=== PATIENT | female | born 1935 | race Caucasian/White ===

== ENCOUNTER 2019-01-04 09:01 | Inpatient (IN) ==
--- NOTE | 2019-01-04 10:32 | Diag Imaging Result Doc PS360 ---
EXAM: ANKLE COMPLETE LEFT HISTORY: ankle injury TECHNIQUE: Left ankle three views COMPARISON: None. FINDINGS: There is a fracture to the distal fibula with multiple small fragments. The proximal and distal shafts are approximately centimeter. There is also a transverse fracture through the medial malleolus. The tibia is dislocated medially in related to the talus as well as anteriorly. An additional fracture line extends to the posterior tibia. The lateral malleolus is not dislocated from the ankle. IMPRESSION: Fractures to the distal tibia and fibula. Electronically signed by Zaid George 01/04/2019 10:30 AM
--- NOTE | 2019-01-04 10:33 | Diag Imaging Result Doc PS360 ---
CHEST-PORTABLE - 01/04/2019 INDICATION: pre op COMPARISON: 05/19/2018 FINDINGS: There is cardiomegaly and pulmonary vascular congestion. There is a trace left pleural effusion. There are hazy interstitial markings bilaterally suggesting mild pulmonary edema. These are mainly in the lung bases. IMPRESSION: Cardiomegaly. Pulmonary edema. Trace left pleural effusion. Electronically signed by Timothy Dey 01/04/2019 10:31 AM
[2019-01-04 10:51] LABS: BASO# 0.03 X1000 (0.0-0.2); BASO% 0.3 % (0.0-0.8); EOS# 0.07 X1000 (0.0-0.7); EOS% 0.6 % (0.0-10.0); HEMATOCRIT 44.8 % (37.0-47.0); HEMOGLOBIN 14.8 g/dL (12.0-16.0); IMM GRAN# 0.04 X1000 (0.0-0.04); IMM GRAN% 0.3 % (0.0-0.5); LYMPH# 1.04 X1000 (1.2-3.4); LYMPH% 8.8 % (20.5-51.1); MCH 30.1 PG (27-31); MCV 91.1 FL (81-99); MONO# 0.62 X1000 (0.11-0.59); MONO% 5.3 % (1.7-9.3); MPV 10.3 FL (7.4-10.4); NEUT% 84.7 % (42.2-75.2); PLT 182 X1000 (130-400); RBC 4.92 XMIL (4.2-5.4); RDW 14.5 % (11.5-14.5)
[2019-01-04 11:01] LABS: INR 1.15; PROTIME 14.8 Seconds (11.0-16.0)
[2019-01-04 11:02] LABS: PTT 32.6 Seconds (22.3-41.8)
[2019-01-04 11:04] LABS: AGAP 13; ALB/GLOB RATIO 1.2; ALBUMIN 3.8 g/dL (3.5-5.0); ALKALINE PHOSPHATASE 69 U/L (32-104); BUN 20 mg/dL (8-22); CALCIUM 8.9 mg/dL (8.8-10.2); CHLORIDE 100 mmol/L (98-107); COSMO 282; CREATININE 0.8 mg/dL (0.5-0.9); ESTIMATED GFR > 60; GLUCOSE 158 mg/dL (70-104); GOT 20 U/L (10-30); GPT 20 U/L (10-36); POTASSIUM 3.6 mmol/L (3.5-5.1); SODIUM 138 mmol/L (136-145); TCO2 25 mmol/L (25-35); TOTAL BILIRUBIN 1.42 mg/dL (0.20-1.00)
--- NOTE | 2019-01-04 11:32 | PROVIDER DOCUMENTATION ---
This chart was entered by Dru Figueroa Scribe, acting as scribe for Syed Hernandez MD. HPI-Musculoskeletal Pain/Inj - GENERAL Chief Complaint: Fall Stated Complaint: fall Time Seen by Provider: 01/04/19 09:52 Source: patient, EMS - HX OF PRESENT ILLNESS-MUSKULOSKELTAL Nature of Presenting Problem: Pt is a 83 yof who presents to the ED via EMS with a CC of fall injury. Pt states she tripped and fell this morning prior to arrival to the ED. Pt states she injured her left ankle during the fall. Pt denies any head injury or LOC. Upon examination the pt had tenderness, swelling, and ecchymosis to the medial malleolus. EMS reports giving the pt 50 fentanyl in route to the ED. Quality of Pain: reports: aching Severity in ED: mild Onset/Duration: just prior to arrival Timing: still present Any recent injury?: Yes Locality of Occurance: Home Similar Symptoms Previously?: No Recently seen or treated by another doctor?: No - FALL INJURY Location of Pain/Injury: reports: lower extremity (Left ankle) Pain Radiation: reports: no radiation Reason for Fall: reports: tripped Symptoms prior to fall:: reports: none Loss of Consciousness: no loss of consciousness Injury Associated Symptoms: reports: joint pain, trouble walking - LOWER EXTREMITY PAIN/INJURY Lower Extremities Pain: ankle: left Context / Method of Injury: reports: fell Review of Systems - Adult - REVIEW OF SYSTEMS - ADULT Constitutional: reports: see HPI Eyes: reports: no symptoms reported Ears, Nose, Mouth & Throat: reports: no symptoms reported Cardiovascular: reports: no symptoms reported Respiratory: reports: no symptoms reported Gastrointestinal: reports: no symptoms reported Genitourinary: reports: no symptoms reported Musculoskeletal: reports: see HPI, joint pain, joint swelling Integumentary: reports: no symptoms reported Neurological: reports: no symptoms reported Psychiatric: reports: no symptoms reported Endocrine: reports: no symptoms reported Hematologic/Lymphatic: reports: no symptoms reported Allergic/Immunologic: reports: no symptoms reported All Other Systems: Reviewed and Negative Past History - Adult - PAST MEDICAL HISTORY-ADULT Review of Records: reports: Old Records Reviewed, Nursing Assessment Review, Medications Reviewed, Social history reviewed & non-contributory. Major Childhood Illnesses: reports: denies history Cardiovascular: reports: CHF, HTN, UT, other (RBB) Respiratory: reports: denies history Gastrointestinal: reports: diverticulosis Obstetrical/Gynecological: reports: denies history Genitourinary: reports: denies history Musculoskeletal: reports: denies history Neurological: reports: denies history Endocrine/Immune: reports: thyroid disorder Other Conditions: reports: denies history - PRIOR SURGERIES/PROCEDURES Surgical/Procedure History: reports: BTL, tonsillectomy, bowel surgery (resection) - IMMUNIZATION STATUS Childhood Immunizations: See Nurse Assessment Flu Vaccine: See Nurse Assessment - FAMILY HISTORY Family History: reviewed, not pertinent - SOCIAL HISTORY Smoking: denies, non-smoker Substance Use: none/never, denies Alcohol Use Frequency: never Physical Exam-Injury Related - Physical Exam-Injury Related Initial Vital Signs Reviewed: Yes General Appearance: alert, mild distress Eyes: PERRL/EOMI, pink conjunctivae Neck: non-tender, full range of motion Respiratory: chest non-tender, lungs clear, normal breath sounds, no pleuratic chest pain, no respiratory distress, no accessory muscle use Cardiovascular: normal peripheral pulses, regular rate, rhythm, no edema, no gallop, no JVD Abdominal Exam: non tender, soft Extremity: swelling, tenderness Integumentary: ecchymosis, swelling, tenderness Neurologic: grossly normal, no motor/sensory deficits Psych/Mental Status: normal mood/affect, normal thought content, normal thought process, oriented x 3 Progress - PLAN OF CARE/RESULTS Progress/Plan/Lab Results: Vital Signs - 8 hr 01/04/19 09:55 Temperature 97.5 F L Pulse Rate 61 Respiratory Rate 16 Blood Pressure 165/75 O2 Sat by Pulse Oximetry 95 Laboratory Results - last 24 hr 01/04/19 01/04/19 01/04/19 10:37 10:37 10:37 WBC 11.80 H RBC 4.92 Hgb 14.8 Hct 44.8 MCV 91.1 MCH 30.1 MCHC 33.0 RDW Std Deviation 14.5 Plt Count 182 MPV 10.3 Immature Gran % (Auto) 0.3 Neut % (Auto) 84.7 H Lymph % (Auto) 8.8 L Island % (Auto) 5.3 Eos % (Auto) 0.6 Baso % (Auto) 0.3 Immature Gran # (Auto) 0.04 Neut # (Auto) 10.00 H Lymph # (Auto) 1.04 L Island # (Auto) 0.62 H Eos # (Auto) 0.07 Baso # (Auto) 0.03 PT 14.8 INR 1.15 PTT (Actin FS) 32.6 Sodium 138 Potassium 3.6 Chloride 100 Carbon Dioxide 25 Anion Gap 13 BUN 20 Creatinine 0.8 Estimated GFR/1.73 m2 > 60 BUN/Creatinine Ratio 25 Glucose 158 H Calculated Osmolality 282 Calcium 8.9 Total Bilirubin 1.42 H AST 20 ALT 20 Alkaline Phosphatase 69 Total Protein 7.0 Albumin 3.8 Globulin 3.2 Albumin/Globulin Ratio 1.2 Orders Category Date Time Status ANKLE COMPLETE LEFT [RAD] Stat Exams 01/04/19 10:09 Completed CHEST-PORTABLE [RAD] Stat Exams 01/04/19 10:09 Completed CBC WITH DIFF [HEME] Stat Lab 01/04/19 10:37 Completed COMPREHENSIVE METABOLIC PANEL [CHEM] Stat Lab 01/04/19 10:37 Completed PROTIME WITH INR [COAG] Stat Lab 01/04/19 10:37 Completed PTT [COAG] Stat Lab 01/04/19 10:37 Completed URINALYSIS W/POSS RFLX CULT [URINALYSIS] Stat Lab 01/04/19 10:09 Uncollected EKG [EKG] Stat Ther 01/04/19 10:09 Ordered Result Diagrams: 01/04/19 10:37 01/04/19 10:37 - EKG 1 Time of EKG reading by physician:: 10:38 EKG Read and Signed by:: Syed Hernandez EKG Interpretation (*Must complete 3 of following elements*): Abnormal (Sinus bradycardia; Left axis deviation; Right bundle branch block; Left ventricular hypertrophy with repolarization abnormality) Rate: 59 Rhythm: Sinus bradycardia Aspers: left QRS: normal KS Interval: normal ST Wave: normal - XRAY 1 XRAY: Left XRAY Study: Ankle Impression: See EMR Report ( EXAM: ANKLE COMPLETE LEFT HISTORY: ankle injury TECHNIQUE: Left ankle three views COMPARISON: None. FINDINGS: There is a fracture to the distal fibula with multiple small fragments. The proximal and distal shafts are approximately centimeter. There is also a transverse fracture through the medial malleolus. The tibia is dislocated medially in related to the talus as well as anteriorly. An additional fracture line extends to the posterior tibia. The lateral malleolus is not dislocated from the ankle. IMPRESSION: Fractures to the distal tibia and fibula. Electronically signed by Zaid George 01/04/2019 10:30 AM 01/04/19 1030 Interpreting Physician: Zaid George MD Dictated Date/Time: 01/04/19 1029 cc: Syed Hernandez MD; Dennis Donaldson MD) 2 XRAY: Bilateral XRAY Study: Chest Impression: See EMR Report ( CHEST-PORTABLE - 01/04/2019 INDICATION: pre op COMPARISON: 05/19/2018 FINDINGS: There is cardiomegaly and pulmonary vascular congestion. There is a trace left pleural effusion. There are hazy interstitial markings bilaterally suggesting mild pulmonary edema. These are mainly in the lung bases. IMPRESSION: Cardiomegaly. Pulmonary edema. Trace left pleural effusion. Electronically signed by Timothy Dey 01/04/2019 10:31 AM 01/04/19 1031 Interpreting Physician: Timothy Dey MD Dictated Date/Time: 01/04/19 1030 cc: Syed Hernandez MD; Dennis Donaldson MD) - CONSULTS/PCP/HOSPITALIST Notification #1 *Consult/PCP/Hospitalist*: Dr. Pathak Time Discussed: 11:08 Reason/Comments: Made aware of pt and states he will see pt in hospital Consult Disposition: other #2 Consult: Dr. Hartley Time Discussed: 11:24 Reason/Comments: Made aware of pt and accepts admission Consult Disposition: Admit Departure - Departure Date of Disposition Decision: 01/04/19 Time of Disposition Decision: 11:31 DIAGNOSIS: Closed bimalleolar fracture of left ankle Qualifiers: Encounter type: initial encounter Qualified Code(s): S82.842A - Displaced bimalleolar fracture of left lower leg, initial encounter for closed fracture Disposition: ADMITTED INPATIENT 09 Certified Medical Emergency: Emergent Condition: Serious Additional Freetext Instructions: ED Follow Up Instructions: You have been treated by a care provider in the Emergency Department. These instructions are being provided to you so you can have an understanding of how to care for yourself upon discharge. Upon discharge from the Emergency Department, you are responsible for making arrangements for follow-up care by a physician of your choice. Take all prescribed medications as directed. Return to the Emergency Department immediately for any new or worsening symptoms. You may call the Physician Referral phone number at [phone] to obtain a list of Physicians who are taking new patients. Referrals and Follow-Ups: Dennis Donaldson MD [Primary Care Provider] - - Critical Care Note This patient required my direct & personal management of CC.: No Attestation - Physician/ PIERRE Attestation Patient care was provided by Advanced Practice Provider:: No The physician spent face to face time with patient:: Yes Advanced Practice Provider documentation review:: Supervising physician onsite and consulted in the evaluation and care of this patient. The physician did have a face to face encounter with the patient. This chart was documented by the indicated scribe, (Dru Figueroa, Jessieibaquiles) and accurately reflects the services I performed and decisions made by me, Syed Hernandez MD, as attested by the provider's signature.
[2019-01-04] MEDS ORDERED: MORPHINE IV PRN (11:34)
[2019-01-04] MEDS ORDERED: NS 1,000 ML IV ONE (11:34)
[2019-01-04] MEDS ORDERED: ZOFRAN IV PRN ×2 (11:34→16:26)
[2019-01-04] MEDS ORDERED: DILAUDID IV ONE (11:43)
--- NOTE | 2019-01-04 11:49 | EKG Report ---
Test Performed on : 01/04/2019 10:29:11 AM Test Reason : CP Blood Pressure : / mmHG Vent. Rate : 059 BPM Atrial Rate : 059 BPM P-R Int : 144 ms QRS Dur : 136 ms QT Int : 484 ms P-R-T Axes : 000 -30 135 degrees QTc Int : 479 ms Sinus bradycardia. Left axis deviation Right bundle branch block Left ventricular hypertrophy with repolarization abnormality Abnormal ECG When compared with ECG of 19-MAY-2018 08:58, No significant change was found Unconfirmed Result
--- NOTE | 2019-01-04 12:34 | ORTHOPAEDICS CONSULTATION ---
DATE: 01/04/2019 HISTORY OF PRESENT ILLNESS: This is an 83-year-old female, who presented to the emergency department today with a complaint of fall and left ankle pain. She tripped and fell this morning before she came to the emergency department and landed on her left ankle. She denies LOC or head trauma. Orthopedics was consulted to come see the patient after x-rays was obtained. The x-rays indicated that she had a trimalleolar ankle fracture on the left side. REVIEW OF SYSTEMS: Twelve point review of systems was performed, with pertinent positives listed in the HPI. PAST MEDICAL HISTORY: The patient reports she has had high blood pressure, congestive heart failure, diverticulosis, and thyroid disorder. PAST SURGICAL HISTORY: The patient reports a colon resection, and tonsillectomy. SOCIAL HISTORY: The patient denies smoking or alcohol use. PHYSICAL EXAMINATION: General: The patient is awake, alert, and in mild distress. HEENT: Eyes are PERRLA. Neck: Nontender. Respiratory: Equal chest expansion rise and fall. Cardiovascular: Regular rate and rhythm. Abdominal: Soft, nontender. Extremities: On left lower extremity exam there is some swelling, with obvious deformity to the left ankle. There is some moderate redness due to the traumatic injury. There is positive ecchymosis. There is tenderness along the medial and lateral aspect of the ankle. There is decreased range of motion due to pain. There are good pedal pulses. There is good sensation. There is good capillary refill in the toes. Vital Signs: Temperature 97.5 degrees, pulse rate 61, respiratory rate 16, blood pressure 165/75, oxygen saturation 95% on room air. LABS: White blood cell count 11.8, hemoglobin 14.8, hematocrit 44.8, platelets 182,000. INR is 1.15. Sodium 138, potassium 3.6, chloride 100, BUN 20, creatinine 0.8, glucose 158. DIAGNOSTIC DATA: X-rays of the left distal tib-fib were performed with fractures being identified as trimalleolar fracture of the left ankle. ASSESSMENT: Trimalleolar ankle fracture on the left side due to fall. PLAN: We plan on doing surgery today with Ms. Leach. We went over the risks and benefits of surgery. We will plan ORIF of the left ankle today around 2 to 3 o'clock. All questions were answered with family at bedside. We will see her soon in surgery. Dictated by PANCHO Kenney for Néstor Pathak MD cc: PANCHO Kenney MD Jagan Reddy, MD
[2019-01-04] MEDS ORDERED: MORPHINE IV ONE (13:02)
[2019-01-04] MEDS ORDERED: TESSALON PO PRN (13:02)
[2019-01-04] MEDS ORDERED: ZOFRAN IV ONE (13:02)
[2019-01-04] MEDS ORDERED: SENSORCAINE 0.5%-EPI 1:200,000 ONE (13:03)
[2019-01-04] MEDS ORDERED: NEOSPORIN G.U. IRRIGANT ONE (13:03)
[2019-01-04] MEDS ORDERED: KEFZOL 1 GM/D5W 1 GM/50 ML IVPB IV ONE (13:07)
[2019-01-04] MEDS ORDERED: QUELICIN (DOSE) ONE (13:34)
[2019-01-04] MEDS ORDERED: XYLOCAINE-MPF 2% ONE (13:34)
[2019-01-04] MEDS ORDERED: DIPRIVAN 1% ONE (13:34)
[2019-01-04] MEDS ORDERED: OFIRMEV 1000 MG/ISOTONIC SOLN 1,000 MG/100 ML BOTTLE ONE ×2 (13:41→14:29)
[2019-01-04] MEDS ORDERED: ROBINUL ONE (13:57)
[2019-01-04] MEDS ORDERED: EPHEDRINE ONE (13:58)
[2019-01-04] MEDS ORDERED: SODIUM CHLORIDE 0.9% 10 ML ONE (13:58)
[2019-01-04] MEDS ORDERED: FENTANYL ONE (14:18)
[2019-01-04] MEDS ORDERED: ZOFRAN ONE (14:20)
[2019-01-04] MEDS ORDERED: DECADRON ONE (14:23)
[2019-01-04] MEDS ORDERED: KETAMINE ONE (14:29)
[2019-01-04] MEDS ORDERED: TORADOL ONE (14:45)
--- NOTE | 2019-01-04 15:58 | OPERATIVE NOTE ---
PROCEDURE DATE: 01/04/2019 PREOP DIAGNOSIS: Trimalleolar left ankle fracture. POSTOP DIAGNOSIS: Trimalleolar left ankle fracture. PROCEDURE: Open reduction, internal fixation of trimalleolar left ankle fracture. SURGEON: Lindsey Pathak MD. RESOURCES REPRESENTATIVE: PANCHO Kenney. Mr. Field was necessary for proper retraction and manipulation of the ankle during the case. ANESTHESIA: General. COMPLICATION: None. PROCEDURE IN DETAIL: This 83-year-old female presents for surgical reduction and fixation of left ankle fracture. Risks, benefits, and no guarantees were discussed and the patient is willing to proceed. The patient was taken to the operating room and satisfactory anesthesia obtained. The left ankle was prepped and draped in usual sterile fashion. A time-out was taken to confirm operative site, procedure, and patient. The leg was wrapped with an Esmarch and tourniquet inflated to 300 mmHg. A lateral incision was made over the distal fibular fracture and a Wong C distal fibular fracture subperiosteally exposed. A precontoured fibular plate was then assembled after reduction and secured with AO technique. Locking screws were placed distally and proximally with care taken to avoid any articular penetration. Anatomic reduction and gnosticist of rotation and leg length the fibula was achieved. C-arm was used for fluoroscopic guidance during the case. Afterwards, an incision was made over the medial aspect of the displaced medial malleolus fracture. This was debrided and open reduction performed. Two 4.0 cannulated screws guidewires were placed through the tip of the medial malleolus and up the metaphysis under fluoroscopic guidance. These were replaced with two 46 mm partially threaded 4.0 cannulated screws securing the medial malleolus. A trimalleolar fracture component was recognized preoperatively in additional front, the back screw was placed in the anterior distal tibia under fluoroscopic guidance. A small incision was made and blunt dissection with a hemostat taken down to the distal anterior cortex. A 36 mm cannulated screw was placed over guidewire from front to back to secure the posterior malleolar fracture. Afterwards the wounds were irrigated and closed in layers with 2-0 Vicryl and skin roxy. The surgical sites were infiltrated with Marcaine and a short-leg cast applied. Tourniquet was released with good return of capillary blood flow. No intraoperative complications were noted. She was recovered from anesthesia and transferred to the recovery room in stable condition. cc: MD Tobin Flores MD
[2019-01-04] MEDS ORDERED: MILK OF MAGNESIA PO PRN (16:26)
[2019-01-04] MEDS ORDERED: HALDOL IV PRN (16:30)
[2019-01-04] MEDS ORDERED: DEMEROL IV PRN (16:36)
[2019-01-04] MEDS: OXY IR PO PRN ×2 (17:48→21:45)
[2019-01-04] MEDS: NS 1,000 ML IV SCH (17:49)
[2019-01-04 19:21] LABS: URINE SOURCE CLEAN CATCH
[2019-01-04 19:28] LABS: BILIRUBIN URINE NEGATIVE (NEGATIVE); BLOOD URINE NEGATIVE (NEGATIVE); COLOR YELLOW; GLUCOSE URINE NEGATIVE (NEGATIVE); KETONE URINE 10 mg/dL (NEGATIVE); LEUKOCYTES URINE NEGATIVE (NEGATIVE); NITRITE URINE NEGATIVE (NEGATIVE); PH URINE 6.5; PROTEIN URINE NEGATIVE (NEGATIVE); SP GRAVITY URINE 1.019; TURBIDITY URINE CLEAR (CLEAR); UR EPITHELIAL CELLS <10 /HPF (<10); URINE BACTERIA NEGATIVE /HPF; URINE RBC <10 /HPF (<10); URINE WBC <10 /HPF (<10); UROBILINOGEN URINE NORMAL (NORMAL)
--- NOTE | 2019-01-04 21:27 | HISTORY AND PHYSICAL ---
REASON FOR ADMISSION: History of fall this morning and sustained injury to the left ankle. HISTORY OF PRESENT ILLNESS: She is an 83-year-old, white female, who came into the emergency room via EMS after a fall at home. She tripped and fell prior to the arrival to the ED. She was seen at our office for back pain on Monday. After workup, she was found to have a left ankle fracture, displaced distal fibula. Apparently, patient was seen by Dr. Pathak. He did open reduction and internal fixation of trimalleolar left ankle fracture. Postoperatively, patient is doing very well. No chest pain, no shortness of breath, other than back pain. As a result, a hospital admission was warranted. 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 PAST SURGICAL HISTORY: Tonsillectomy, tubal ligation, left heart catheterization in August 2017, negative. MEDICATIONS: Aspirin 81 mg daily, Synthroid 88 mcg daily, Lipitor 40 mg daily, metoprolol 50 p.o. b.i.d., Norvasc 5 mg daily, lisinopril/hydrochlorothiazide 20/12.5 daily. ALLERGIES: Not known. SOCIAL HISTORY: , 6 children. Living in [place]. No smoking. No alcohol. FAMILY HISTORY: Father of CVA. Mom of colon cancer at 88. HEALTH MAINTENANCE: Flu vaccine in February 2016, pneumococcal in 2009, mammography in September 2017, DEXA scan in 2017, last colonoscopy in [address] Chavez. REVIEW OF SYSTEMS: HEENT: No headache. No vision problem. No earache. No sore throat. Neck: No goiter. No lymphadenopathy. No bruit. Cardiopulmonary: No chest pain, shortness of breath, palpitations, PND, orthopnea. Gastrointestinal: No nausea, vomiting, abdominal pain. Genitourinary: No history of dysuria, hesitancy, frequency. No swelling of feet. Left ankle has postoperative cast placed. Neurologic: No focal symptoms or weakness. PHYSICAL EXAMINATION: VITAL SIGNS: Temperature is 97 degrees, pulse 68, blood pressure 146/68, and 2 L nasal cannula 100%. HEENT: Atraumatic, normocephalic. Pupils equal, react to light. TMs are normal. Nose and throat within normal limits. NECK: Supple. No lymphadenopathy. No goiter. CHEST: Bilateral air entry. CARDIOVASCULAR: Heart sounds are regular. GASTROINTESTINAL: Belly is soft, obese, nontender. No masses palpable. NEUROLOGIC: Nonfocal. EXTREMITIES: Left ankle has a cast applied. LABORATORY: CBC: White cell count 11, hematocrit 44, platelets 182,000. PT/INR is normal. SMA 7 is normal. Glucose 158. LFTs are normal. Urinalysis is clear. ASSESSMENT: An 83-year-old, white female, admitted to the hospital with left ankle fracture, status post open reduction and internal fixation. Doing very well. PLAN: 1. Pain control with oxycodone. 2. Intravenous fluids. 3. Perioperative antibiotics with cefazolin. 4. Deep venous thrombosis prophylaxis with Xarelto 10 mg every 24 hours. 5. Reconciled home medicines as follows: Hypothyroidism, on Synthroid 88 mcg daily. Hypertension, on lisinopril/hydrochlorothiazide 1 tablet daily. PSVT, Lopressor 25 p.o. b.i.d. 6. Disposition: social services director consult for rehab placement. Out of the bed with physical therapy. I appreciated Dr. Pathak's consult. cc: Tobin Donaldson MD
[2019-01-04] MEDS: COLACE PO SCH (21:44)
[2019-01-04] MEDS: LOPRESSOR PO SCH (21:45)
[2019-01-04] MEDS: KEFZOL 1 GM/D5W 1 GM/50 ML IVPB IV SCH (21:45)
[2019-01-04] MEDS: TYLENOL PO SCH (21:45)
[2019-01-05 06:00] LABS: HEMATOCRIT 39.8 % (37.0-47.0); HEMOGLOBIN 13.2 g/dL (12.0-16.0)
[2019-01-05 06:59] LABS: CALCIUM 8.1 mg/dL (8.8-10.2); POTASSIUM 4.2 mmol/L (3.5-5.1)
[2019-01-05] MEDS: XARELTO PO SCH (07:18)
[2019-01-05] MEDS: KEFZOL 1 GM/D5W 1 GM/50 ML IVPB IV SCH ×2 (07:18→14:56)
[2019-01-05] MEDS: TYLENOL PO SCH ×3 (07:18→21:29)
[2019-01-05] MEDS: NS 1,000 ML IV SCH ×3 (07:20→19:45)
[2019-01-05] MEDS: OXY IR PO PRN ×2 (07:53→14:56)
[2019-01-05] MEDS: LOPRESSOR PO SCH ×2 (08:27→21:29)
[2019-01-05] MEDS: FERROUS SULFATE PO SCH (08:28)
[2019-01-05] MEDS: ASPIRIN EC PO SCH (08:28)
[2019-01-05] MEDS: HYZAAR 50/12.5 MG PO SCH (08:29)
[2019-01-05] MEDS: SYNTHROID PO SCH (08:29)
--- NOTE | 2019-01-05 09:49 | PROGRESS NOTE ---
DATE: 01/05/2019 VITAL SIGNS: Stable with temperature 97.8 degrees, heart rate 67, respirations 16, blood pressure 182/79, O2 saturation on nasal oxygen 97%. The pain level is 7. Ankle is not tender but the left knee is sore related to her fall. LABORATORY DATA: Hemoglobin 13.2, hematocrit 39.8, white blood count 01812 yesterday. Sodium this morning 139, potassium 4.2, BUN 21, creatinine 1.0, glucose 134. She complains with mild shortness of breath which is better after addition of oxygen. Lungs are clear. There is history of coronary artery disease and hypertension. She used to take cholesterol medicine. PLAN: Increase diet and place on Lipitor at bedtime. The left knee will be x-rayed since there is no record of this having been done. cc: MD Tobin Hathaway MD
--- NOTE | 2019-01-05 12:52 | ORTHOPAEDICS PROGRESS NOTE ---
DATE: 01/05/2019 SUBJECTIVE: Ms. Leach is seen status post ORIF of bimalleolar ankle fracture. She is doing well at the present time. She has been up with therapy. Her cast is clean and dry. There is good capillary refill. Vital signs are stable. She will need discharge planning at some point. She can be discharged from our standpoint for outpatient followup. We will be available to check her as needed. At this point, she would just need to be mobilized with a walker, touchdown weightbearing on that lower extremity. cc: MD Tobin Flores MD
--- NOTE | 2019-01-05 13:45 | Diag Imaging Result Doc PS360 ---
KNEE 3 VIEWS LEFT - 01/05/2019 INDICATION: pain knee TECHNIQUE: Three views COMPARISON: None FINDINGS: Bones are intact and normally aligned. No joint effusion. There is some degenerative chondral calcinosis of the menisci. Otherwise joint spaces are preserved. IMPRESSION: Degenerative chondrocalcinosis of the menisci. No acute injury. Electronically signed by Timothy Dey 01/05/2019 1:43 PM
[2019-01-05] MEDS: COLACE PO SCH (21:29)
[2019-01-05] MEDS: LIPITOR PO SCH (21:29)
[2019-01-06] MEDS: TYLENOL PO SCH ×3 (05:34→23:21)
[2019-01-06] MEDS: XARELTO PO SCH (05:34)
[2019-01-06 05:55] LABS: HEMATOCRIT 42.3 % (37.0-47.0); HEMOGLOBIN 13.4 g/dL (12.0-16.0)
[2019-01-06] MEDS: NS 1,000 ML IV SCH ×2 (08:46→20:29)
[2019-01-06] MEDS ORDERED: SOLU-MEDROL IV ONE (09:37)
[2019-01-06] MEDS: LOPRESSOR PO SCH ×2 (09:39→23:21)
[2019-01-06] MEDS: HYZAAR 50/12.5 MG PO SCH (09:39)
[2019-01-06] MEDS: OXY IR PO PRN ×3 (09:40→18:39)
[2019-01-06] MEDS: FERROUS SULFATE PO SCH (09:41)
[2019-01-06] MEDS: SYNTHROID PO SCH (09:41)
--- NOTE | 2019-01-06 09:41 | ORTHOPAEDICS PROGRESS NOTE ---
DATE: 01/06/2019 Ms. Leach is postop ORIF of her ankle. Vital signs are stable. There was no evidence of a temperature. She has good capillary refill. Followup x-rays of her knee were essentially negative other than some early osteoarthritis yesterday. At this point, we will sign off and she can follow up with us in the office. We will need to see her back in roughly 1 to 2 weeks for followup x-rays of the ankle. cc: MD Tobin Flores MD
--- NOTE | 2019-01-06 09:46 | ORTHOPAEDICS PROGRESS NOTE ---
DATE: 01/06/2019 SUBJECTIVE: Mrs. Leach is seen status post open reduction/internal fixation of her ankle. At the present time, her cast is clean and dry. Her knee x-rays look good. We will follow up with her in the office. Will be available as needed. cc: MD Tobin Flores MD
[2019-01-06] MEDS: ASPIRIN EC PO SCH (09:48)
--- NOTE | 2019-01-06 09:53 | PROGRESS NOTE ---
DATE: 01/06/2019 VITAL SIGNS: Stable with temperature 97.8 degrees, heart rate 71, respirations 16, blood pressure a little elevated at 179/83, most likely related to increased pain in her leg and ankle, O2 saturation on nasal oxygen 95%. LABORATORY DATA: Hemoglobin 13.4, hematocrit 42.3. 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 Lungs seem to be clear at this point. She has increased pain in her left knee and ankle area related to her break. She has been reluctant to take pain medicine. She is reassured that it will be fine to take medicine as ordered. Also, she will be given Solu-Medrol 40 mg IV 1 dose, and Singulair 10 mg 1 daily to help with congestion and wheezing. PLAN: Consider rehab tomorrow. cc: MD Tobin Hathaway MD
[2019-01-06] MEDS: SINGULAIR PO SCH (09:55)
[2019-01-06] MEDS: LIPITOR PO SCH (23:21)
[2019-01-06] MEDS: COLACE PO SCH (23:22)
[2019-01-07] MEDS: OXY IR PO PRN ×3 (03:28→17:42)
[2019-01-07 05:54] LABS: HEMATOCRIT 38.3 % (37.0-47.0); HEMOGLOBIN 12.6 g/dL (12.0-16.0)
[2019-01-07] MEDS: SYNTHROID PO SCH (06:50)
[2019-01-07] MEDS: XARELTO PO SCH (06:50)
[2019-01-07] MEDS: TYLENOL PO SCH ×3 (06:51→21:01)
[2019-01-07] MEDS: SINGULAIR PO SCH (08:49)
[2019-01-07] MEDS: LOPRESSOR PO SCH ×2 (08:49→21:02)
[2019-01-07] MEDS: FERROUS SULFATE PO SCH (08:49)
[2019-01-07] MEDS: HYZAAR 50/12.5 MG PO SCH (08:49)
[2019-01-07] MEDS: ASPIRIN EC PO SCH (08:49)
[2019-01-07] MEDS: NS 1,000 ML IV SCH ×3 (08:50→21:00)
--- NOTE | 2019-01-07 18:52 | PROGRESS NOTE ---
DATE: 01/07/2019 SUBJECTIVE: The patient is doing better. Events noted over the weekend. Pain is adequately controlled. REVIEW OF SYSTEMS: None reported. OBJECTIVE: Temperature is 98 degrees, pulse 70, and blood pressure is stable.HEENT: Within normal limits. Neck: Supple. Chest: Clear. Heart: Sounds are regular. Abdomen: Belly is soft and nontender. ASSESSMENT AND PLAN: 1. Postoperative day 3 left ankle trimalleolar fracture. Continue out of the bed. 2. Hypothyroidism on Synthroid. 3. Hypertension is stable. 4. DVT prophylaxis with Xarelto. 5. Discussed with the family. 6. Progress Worker consult for rehab placement LEVEL OF DOCUMENTATION: 25 minutes. cc: Tobin Donaldson MD
[2019-01-07] MEDS: COLACE PO SCH (21:02)
[2019-01-07] MEDS: LIPITOR PO SCH (21:02)
[2019-01-08] MEDS: OXY IR PO PRN ×4 (00:42→21:41)
[2019-01-08] MEDS: XARELTO PO SCH ×2 (04:55→05:01)
[2019-01-08] MEDS: SYNTHROID PO SCH ×2 (04:55→06:02)
[2019-01-08] MEDS: TYLENOL PO SCH ×3 (04:55→21:43)
[2019-01-08] MEDS: LOPRESSOR PO SCH ×2 (09:31→21:42)
[2019-01-08] MEDS: FERROUS SULFATE PO SCH (09:32)
[2019-01-08] MEDS: HYZAAR 50/12.5 MG PO SCH (09:32)
[2019-01-08] MEDS: SINGULAIR PO SCH (09:32)
[2019-01-08] MEDS: NS 1,000 ML IV SCH ×3 (09:32→21:45)
[2019-01-08] MEDS: ASPIRIN EC PO SCH (09:32)
--- NOTE | 2019-01-08 10:36 | DISCHARGE SUMMARY ---
ADMISSION DATE: 01/04/2019 DISCHARGE DATE: 01/09/2019 DISCHARGING DIAGNOSIS: Left ankle fracture status post open reduction and internal fixation by Dr. Pathak. SECONDARY DIAGNOSES: 1. Noncritical coronary artery disease. 2. Metabolic syndrome. 3. Glucose intolerance. 4. Hypertension. 5. Hyperuricemia. 6. Hypothyroidism. 7. Paroxysmal supraventricular tachycardia. 8. Right bundle branch block. 9. 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 CONSULTS: Dr. Pathak. PROCEDURES: Open reduction internal fixation of trimalleolar left ankle fracture. BRIEF HISTORY: Please see the H and P that was done on 01/04/2019. In brief, she is an 83-year- old white female, came to the ER after she fell at home, sustained injury to the left ankle. She had a left ankle fracture. Subsequently seen by Dr. Pathak who did open reduction internal fixation of trimalleolar left ankle fracture. Postoperative course was uneventful. The patient's family wants to go for rehab. She is medically stable. LABS: CBC: White cell count 11, hematocrit 38, platelets 182,000. Sodium 139, potassium 4.2, BUN 21, creatinine 1.0, glucose 134, calcium 8.1. Liver function tests were normal. Urinalysis is clear. DISCHARGE INSTRUCTIONS: Synthroid 88 mcg daily, aspirin 325 daily, Hyzaar 50/12.5 daily, metoprolol 25 p.o. b.i.d., Colace 200 mg at bedtime, Lipitor 10 daily, Xarelto 10 every 24 hours for 1 month, Singulair 10 daily, Tylenol for p.r.n. pain. Follow up with Dr. Pathak in 3 weeks as well as in my office. cc: Tobin Donaldson MD [facility]
[2019-01-08] MEDS: COLACE PO SCH (21:42)
[2019-01-08] MEDS: LIPITOR PO SCH (21:42)
--- NOTE | 2019-01-08 23:18 | PROGRESS NOTE ---
DATE: 01/08/2019 SUBJECTIVE: An 83-year-old female admitted to the hospital with left ankle fracture repair. The patient is stable and waiting for placement. Paperwork has been done. OBJECTIVE: Vital signs: Temperature is 98 degrees vitals are stable. Physical exam, no change. ASSESSMENT AND PLAN: Left ankle fracture, stable. Waiting for placement. Continue present treatment. I did the paperwork and patient is medically stable, will be transferred to the rehab when the bed is available. LEVEL OF DOCUMENTATION: 15 minutes. cc: Tobin Donaldson MD
[2019-01-09] MEDS: SYNTHROID PO SCH (06:04)
[2019-01-09] MEDS: TYLENOL PO SCH ×3 (06:04→21:45)
[2019-01-09] MEDS: XARELTO PO SCH (06:04)
[2019-01-09] MEDS: ASPIRIN EC PO SCH (08:48)
[2019-01-09] MEDS: FERROUS SULFATE PO SCH (08:48)
[2019-01-09] MEDS: HYZAAR 50/12.5 MG PO SCH (08:48)
[2019-01-09] MEDS: LOPRESSOR PO SCH ×2 (08:48→21:45)
[2019-01-09] MEDS: SINGULAIR PO SCH (08:48)
[2019-01-09] MEDS: OXY IR PO PRN (15:12)
--- NOTE | 2019-01-09 21:19 | PROGRESS NOTE ---
DATE: 01/09/2019 SUBJECTIVE: The patient is doing well. No complaints. OBJECTIVE: On exam, vital signs are stable. HEENT exam within normal limits. Neck is supple. Chest is clear. Heart sounds are regular. Belly is soft, nontender. No neurological deficits. ASSESSMENT AND PLAN: Left ankle fracture, stable in the cast. Pain is adequately controlled. Discontinue fluids. Waiting for paperwork to be completed by the insurance company to be approved for half-way placement. Continue present treatment. Will follow up. Level of documentation is 15 minutes. cc: Tobin Donaldson MD
[2019-01-09] MEDS: COLACE PO SCH (21:44)
[2019-01-09] MEDS: LIPITOR PO SCH (21:45)
[2019-01-10] MEDS: OXY IR PO PRN (02:53)
[2019-01-10] MEDS: TYLENOL PO SCH (06:03)
[2019-01-10] MEDS: XARELTO PO SCH (06:04)
[2019-01-10] MEDS: SYNTHROID PO SCH (06:04)
[2019-01-10 07:44] VITALS: BP 165/65
[2019-01-10] MEDS: SINGULAIR PO SCH (09:53)
[2019-01-10] MEDS: LOPRESSOR PO SCH (09:53)
[2019-01-10] MEDS: FERROUS SULFATE PO SCH (09:53)
[2019-01-10] MEDS: HYZAAR 50/12.5 MG PO SCH (09:53)
[2019-01-10] MEDS: ASPIRIN EC PO SCH (09:53)
== END 2019-01-10 12:43 | DRG 493 ==
LOC: SUPCPDRO → ED 09:01 → 4N 11:45
PROVIDERS: ADMIT Internal Medicine; ATTEND Internal Medicine